=== PATIENT | female | born 1970 | race Caucasian/White ===

== ENCOUNTER 2025-05-11 12:12 | Outpatient (CLI) | payer OTHER, SELFPAY ==
--- OUTSIDE RECORDS SUMMARY | 2025-05-11 12:18 | XMS_ITS | Encounter Summary ---
Author Organization [facility] Address [address] [place] [address] Care Team Providers Care Quality Control Operator Name Role Phone Darrick Neely MD Unavailable [phone] Vineet Drummond MD Primary Care Provider [phone] Encounter Details Date Type Department Care Team (Late st Contact Info) Description 08/07/2022 Lab Requisition [facility] [address] [place] [address] Jorge Butler [place] [address] Social History Tobacco Use Types Packs/Day Years Used Date Smoking Tobacco: Never Assessed Comments Unknown Sex and Gender Information Value Date Recorded Sex Assigned at Not on file Legal Sex Female 6:07 AM SCOUTS Gender Identity Not on file Sexual Orientation Not on file documented as of this encounter Plan of Treatment Not on file documented as of this encounter Procedures Procedure Name Priority Date/Time Associated Diagnosis Comments DERMATOPATHOLOGY Routine 08/06/2022 12:0 0 AM SCOUTS documented in this encounter Results * DERMATOPATHOLOGY (08/06/2022 12:00 AM SCOUTS) Case Report Dermatopathology Report Case: [id number] Authorizing Provider: Jorge Butler MD Collected: 08/06/2022 12:00 AM Ordering Location: [facility] Received: 08/07/2022 01:08 PM Pathologist: Mony Sierra MD Specimen: Skin, sup edge of left patella 2 2:10 PM [facility] Final Diagnosis Specimen A. SKIN, sup edge of left patella: SEBORRHEIC KERATOSIS (L82.1) 2 2:10 PM [facility] at [address] Clinical History R/O SCC, Dys Nevus, ISK 2 2:10 PM [facility] Gross Description Specimen A: Received is one formalin filled container labeled with the patient's name and designated sup edge of left patella. The specimen consists of a shave biopsy measuring [id number]. Jar 0. 2 2:10 PM [facility] Microscopic Description Specimen A. SKIN, sup edge of left patella: Sections show an acanthotic lesion composed of relatively uniform keratinocytes. There is hyperkeratosis and pseudo horn cysts formation. 2 2:10 PM [facility] Disclaimer An external and internal positive and negative controls are appropriate for the histochemical, immunohistochemical and immunofluorescence stain(s) in this case (if any), except where stated explicitly. The performance characteristics of the stain(s) cited in this report were developed and its performance characteristic determined by the Dermatopathology Laboratory at [facility], directed by Dr. Stephanie Crowley. These tests need not be, and therefore are not, approved by the [place] Food and Drug Administration. The tests are used for clinical purposes. Billing Codes Specimen Charges Stain Charges 14946 1 2 2:10 PM [facility] Embedded Images 2 2:10 PM [facility] Pathology/Cytolog y TISSUE SPECIMEN FROM SKIN / Unknown 08/06/2022 08/07/2022 1:08 PM [facility] Jorge Butler MD LAB - PATHOLOGY/CYTOLOGY ORD ERABLES Final Result DERMATOPATHOLOGY LABORATORY [facility] - Department of Dermatology [address], [address] [phone] documented in this encounter Visit Diagnoses Not on filedocumented in this encounter Care Teams Quality Control Operator Relationship Specialty Start Date End Date Vineet Drummond MD [address] [place] [address] PCP - General 08/07/22 [place] [address] [facility] [address] [place] [id number] Orthopedic Surgery 07/12/16 documented as of this encounter
--- OUTSIDE RECORDS SUMMARY | 2025-05-11 12:18 | XMS_ITS | Clinical Summary ---
Author Organization [facility] [employer] Address [address] [place] [address] Care Team Providers Care Agriculture Teacher Name Role Phone Darrick Neely MD Unavailable [phone] Vineet Drummond MD Primary Care Provider Source Comments [facility] [employer],non-owned Affiliates and Associated Physician Practices is amultiple site organization consisting of ambulatory clinics and hospital sitesin [place], [place], [place] and [place]. This disclosure is being madepursuant to the Care Everywhere program and may not contain all information available regarding this patient. Last updated 18.[facility] [employer] Allergies No known active allergies Medications * Be aware that medications may not be up to date on this document. Alwaysverify current medications with the patient. lamoTRIgine (LAMICTAL) 150 MG tablet Take 1 Tab by mouth 2 times daily. 120 Tab 1 10/15/2011 Active FLUoxetine HCl (PROZAC PO) Active Active Problems Problem Noted Date Diagnosed Date Closed Colles' fracture of right radius 07/12/20 16 Social History Tobacco Use Types Packs/Day Years Used Date Smoking Tobacco: Never Assessed Comments Unknown Sex and Gender Information Value Date Recorded Sex Assigned at Not on file Legal Sex Female 6:07 AM IMPORTER EXPORTER Gender Identity Not on file Sexual Orientation Not on file Last Filed Vital Signs Vital Sign Reading Time Taken Comments Blood Pressure - - Pulse - - Temperature - - Respiratory Rate - - Oxygen Saturation - - Inhaled Oxygen Concentration - - Weight 65.3 kg (144 lb) 07/12/2016 8:58 AM CDT Height 167.6 cm (5' 6) 07/12/2016 8:58 AM CDT Body Mass Index 23.24 07/12/2016 8:58 AM CDT Plan of Treatment Health Maintenance Due Date Last Done Comments COLOGUARD (AGES 45-75) - COL ON CA SCREENING 1971 COLON MONITORING 1971 COLONOSCOPY - COLON CA SCREENING 1971 CT COLONOGRAPHY - COLON CA SCREENING 1971 Colorectal Cancer Screening 1971 FIT - COLON CA SCREENING 1971 FLEX SIG - COLON CA SCREENING 1971 LIPID TESTING 1971 MAMMOGRAM 1971 HIV SCREENING 1986 HEPATITIS C SCREENING 01/02/1989 DTAP/TDAP/TD VACCINES (1 - Tdap) 1990 HEPATITIS B VACCINE (1 of 3 - 19+ 3-dose series) 1990 PAP SMEAR 01/08/1992 PNEUMOCOCCAL VACCINE 50+ (1 of 1 - PCV) 2021 ZOSTER VACCINE (1 of 2) 2021 COVID-19 VACCINE (1 - 2023-2 5 season) 2024 DEPRESSION SCREENING 09/29/2024 INFLUENZA VACCINE (#1) 2025 HIB VACCINE Aged Out No longer eligi ble based on patient's age to complete this topic HPV VACCINE Aged Out No longer eligi ble based on patient's age to complete this topic MENINGOCOCCAL (Group B) VACC INE SHARED DECISION-MAKING Aged Out No longer eligibl e based on patient's age to complete this topic MENINGOCOCCAL GROUPS A/C/Y/W VACCINE Aged Out No longer eligible b ased on patient's age to complete this topic Insurance [employer] Care Teams Agriculture Teacher Relationship Specialty Start Date End Date Vineet Drummond MD [address] [address] PCP - General 08/07/22 [place] [address] [phone] Orthopedic Surgery 07/12/16
--- OUTSIDE RECORDS SUMMARY | 2025-05-11 12:18 | XMS_ITS | Continuity of Care Document ---
Author Organization [facility] Address [address] [place] [address] Phone Care Team Providers Care Professor Sculpture Name Role Phone Canelo Dubon MD Unavailable Unavailable Procedures Procedure Date Office/outpatient Visit, [facility] Advance Directives Directive Yes / No Effective Date File Name No Information Encounters Encounter Description Practice Location Reason(s) For Visit Diagnoses Date Provider Providers Copied on Encounter Office/outpat ient Visit, [facility], [address], [place], [place], [id number], [place] tel:[phone] [address] [facility] Professional No Information 2 Ling Lemos. [address], [place], [id number], [place]. tel:[phone] Referring Provider: Canelo Sampson [address] [place], [address] . tel:[phone] Family History Family Member Type Diagnosis Age At Onset No Information Payers Payer name Insurance type Covered constitution party ID Authoriza tion(s) No Information Social History [...]
--- OUTSIDE RECORDS SUMMARY | 2025-05-11 12:18 | XMS_ITS | Clinical Summary ---
Author Organization [facility] Address [address] [place] [address] Care Team Providers Care Planning Technician Name Role Phone Tim Bahena MD Primary Care Provider [phone] Mae Galloway MD Unavailable Allergies No known active allergies Medications levonorgestrel (MIRENA) IUD 0 0 4 Active valACYclovir (VALTREX) 500 mg tablet Take 1 tablet (500 mg total) by mouth daily 90 tablet 2 1 Active Additional Information Patient taking differently:500 mg oralDaily PRN, Reported on 10/25/2024 minocycline (MINOCIN,DYNACI N) 50 mg capsule Take 1 capsule (50 mg total) by mouth as needed 3 Active oxyBUTYnin XL (DITROPAN-XL) 5 mg 24 hr tabletIndicatio ns:Overactive bladder Take 1 tablet (5 mg total) by mouth daily 90 tablet 3 5 10/25/19 26 Active sertraline (ZOLOFT) 50 mg tabletIndicatio ns:Anxiety Take 2 every am, and 1 every pm 270 tablet 1 5 Active busPIRone (BUSPAR) 5 mg tabletIndicatio ns:Generalized Anxiety Disorder Take 1 tablet (5 mg total) by mouth nightly 90 tablet 1 5 Active lamoTRIgine (LaMICtal) 150 mg tablet TAKE TWO TABLETS BY MOUTH TWICE A DAY 360 tablet 5 Active tirzepatide, weight loss, (ZEPBOUND) 10 mg/0.5 mL pen injectorIndicat ions:Weight Loss Management for Obese Patient (BMI >= 30) Inject 0.5 mL (10 mg total) under the skin every 7 days 2 mL 1 5 Active cyclobenzaprine (FLEXERIL) 10 mg tabletIndicatio ns:Muscle Spasm Take 1/2 tablet (5 mg total) by mouth once daily at bedtime as needed. 15 tablet 5 Active Active Problems Problem Noted Date Diagnosed Date Screening for colon cancer 12/30/2023 Left ovarian cyst 06/12/2023 Anxiety 02/04/2020 Weight gain advised 02/04/2020 Routine physical examination 12/17/2017 Assessment & Plan (08/23/2024 1:46 PM MILL ROLL OPERATOR): IMMUNIZATIONS WERE REVIEWED EYE EXAM AND DENTAL UPTODATE JENNIFER CHRONIC AND NOT IN REMSSION ZOLOFT 150 MG PO QAM AND ADD BUSAPR 5 MG PO QHS LEVEL 2 OBESITY : DISCUSSED HBAIC TODAY / GLP 1 AGONIST IF HBAIC IS ELEVATED SEIZURE D/O CHRONIC AND STABLE NO COGNTIVE DECLINE NO SKIN LESIONS REFERRAL TO DERMATOLOGY Pain in wrist 06/10/2016 Overview (01/04/2017): Wrist pain Seizure 06/10/2016 Overview (01/04/2017): Seizures Encounters Date Type Department Care Team Description 04/13/2025 Telephone [facility] [address] [place] [address] Tim Bahena MD Back Pain from Last 3 Months Immunizations Immunization Administration Dates Next Due DTP 08/23/2011 Influenza, Quadrivalent, Spl it, Preservative Free, Intramuscular 07/11/2023 Influenza, Unspecified 08/12/2024 Tdap 09/30/2019,11/18/2013 Surgical History Surgery Date Site/Laterality Comments OTHER SURGICAL HISTORY Seizure disorder: Managed with Dr. Gomez ([facility]) AUGMENTATION MAMMOPLASTY augmentation mammoplasty OTHER SURGICAL HISTORY Seizure disorder: Lamictal OTHER SURGICAL HISTORY Irregular, heavy periods: Mirena IUD BREAST FIBROADENOMA SURGERY 09/29/1995 - 09/28/1996 Fibroadenoma of the breast: excision SKIN CANCER EXCISION 09/29/1998 - 09/28/1999 Basal cell skin cancer: excision COLONOSCOPY >10 yrs ago COLONOSCOPY 09/01/2024 Medical History Medical History Date Comments Seizure disorder (HCC) Seizure d isorder Hx Other Medical Seizure disorde r Hx Other Medical 1995 Fibroadenoma of the breast Hx Other Medical 1998 Basal cell skin cancer Hx Other Medical 2012 Irregular, heav y periods Hx Other Medical Fx Left leg wit h hardware 04-29-16.; Comments: [facility] 06/11/2016 - Hx Other Medical Fx. right wrist 06-05-16.; Comments: [facility] 06/11/2016 - Abnormal Pap smear of cervix 2017 LSI L, HPV+. Colposcopy - [facility]ICE 1 Abnormal Pap smear of cervix 2018 NIL M, HPV + (neg 16/18/45). Colposcopy - neg biopsies Family History Medical History Relation Name Comments Asthma Brother 1 Asthma; Seizures Brother 2 Seizure disorde r; Coronary artery disease Father Edith nary artery disease; Diabetes Father Diabetes mellit us; Heart attack Father Myocardial infa rction; Seizures Father Seizure disorde r; Skin cancer Father Cancer -skin; Hypertension Mother Hypertension; Other Mother's Sister Cancer, ? ty pe; Other Other No family histo ry of Stroke; Relation Name Status Comments Brother 1 Brother 2 Father Mother Mother's Sister Other Social History Tobacco Use Types Packs/Day Years Used Date Smoking Tobacco: Never Smokeless Tobacco: Never Tobacco Cessation:Counseling Given: Not Answered Alcohol Use Standard Drinks/Week Comments Yes 0 (1 standard drink = 0.6 oz pur e alcohol) AUDIT-C Answer Date Recorded Q1: How often do you have a drink containing alc ohol? 2-4 times a month 08/31/2024 Q2: How many drinks containi ng alcohol do you have on a typical day when you are drinking? 5 or 6 08/31/2024 Q3: How often do you have si x or more drinks on one occasion? Monthly 08/31/2024 PHQ-2 Answer Date Recorded PHQ-2 Total Score (If total score is 3 or more points, staff should administer the PHQ-9) 2 08/23/2024 Personal Safety Answer Date Recorded Have you ever been in or are you currently in a harmful physical or emotional relationship or is someone making you feel afraid or unsafe? 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 on file Not on file Not on file Obstetrics History Para Term AB IAB SAB Ectopic Multiple Livin g Live Births 0 0 0 0 0 0 0 0 0 0 0 Last Filed Vital Signs Vital Sign Reading Time Taken Comments Blood Pressure 138/72 10/25/2024 8:20 AM MILL ROLL OPERATOR Pulse 55 09/01/2024 10:12 AM MILL ROLL OPERATOR Temperature 36.3 C (97.4 F) 09/01/2024 10:12 AM MILL ROLL OPERATOR Respiratory Rate 16 09/01/2024 10:12 AM MILL ROLL OPERATOR Oxygen Saturation 95% 09/01/2024 10:12 AM MILL ROLL OPERATOR Inhaled Oxygen Concentration - - Weight 90.7 kg (200 lb) 10/25/2024 8:20 AM MILL ROLL OPERATOR Height 167.6 cm (5' 6) 10/25/2024 8:20 AM MILL ROLL OPERATOR Body Mass Index 32.28 10/25/2024 8:20 AM MILL ROLL OPERATOR Plan of Treatment Health Maintenance Due Date Last Done Comments Hepatitis C Screening 1970 Hepatitis B Screening 1989 Zoster Vaccine (1 of 2) 2021 Covid-19 Vaccine ( season) 2024 11/21/2020, 10/24/2020 Cervical Cancer Screening 06/12/20242022, 06/12/2023, 11/08/2020, Additional history exists Influenza Vaccine (#1) 2025 08/12/2024, 2022 Depression Screening 08/23/2025 08/23/2024 Regular Well Visit/Exam 18-64 10/25/2025 10/25/2024, 08/23/2024, 08/12/2023, Additional history exists Breast Cancer Screening-Mammogram 10/26/2025 10/26/2024, 06/17/2023, 08/15/2020, Additional history exists DTaP/Tdap/Td Vaccine (4 - Td or Tdap) 09/30/2029 09/30/2019, 11/18/2013, 08/23/2011 Colon Cancer Screening-Colonoscopy 09/01/2034 09/01/2024 Pneumococcal vaccine <65 Aged Out No longer eligible based on patient's age to complete this topic Medical Devices Implanted Type Area Crimping Machine Operator Device Identifier Shelf Expiration Date Model / Serial / Lot Breast Implants Bilateral: Breast Description:2012 Procedures Procedure Name Priority Date/Time Associated Diagnosis Comments SCREENING MAMMOGRAM BILATERAL W DADA W IMPLANTS Schedule Routine, Read Routine (OP Routine) 10/26/2024 12:04 PM MILL ROLL OPERATOR Encounter for screening mammogram for breast cancer COLONOSCOPY 09/01/2024 8:05 AM MILL ROLL OPERATOR HIGH RISK HPV DNA DETECTION WITH GENOTYPING Routine 06/12/2023 9:02 AM CDT Screening for malignant neoplasm of the cervix from Last 3 Months or Most Recently Relevant to Health Maintenance Results * Screening Mammogram Bilateral W Dada W Implants (10/26/2024 12:04 PM MILL ROLL OPERATOR) Anatomical Region Laterality Modality Breast Bilateral Mammography 10/27/2024 5:12 PM MILL ROLL OPERATOR Impressions 10/27/2024 5:12 PM MILL ROLL OPERATOR No evidence of malignancy in either breast. FINAL ASSESSMENT: BI-RADS Category 1: Negative. RECOMMENDATION: Recommend return for annual screening mammogram in 12 months. Electronically signed by: Theresa Lopez M.D. Narrative 10/27/2024 5:12 PM MILL ROLL OPERATOR EXAMINATION: BILATERAL SCREENING MAMMOGRAM with dada with implants COMPARISON: 06/17/2023, 08/15/2020, 04/27/2019, 06/22/2010 TECHNIQUE: Full-field 2D and digital breast tomosynthesis (DBT) images were obtained in the routine and implant displaced CC and MLO projections. CAD was utilized. BREAST PARENCHYMAL COMPOSITION: There are scattered areas of fibroglandular density. FINDINGS: Bilateral subpectoral silicone implants are stable. There is no suspicious mass, calcification, or distortion in either breast. There has been no significant interval change from the prior study. us Mae Galloway MD IMG MAMMO PROCEDURES Final Result * Colonoscopy (09/01/2024 8:05 AM MILL ROLL OPERATOR) Anatomical Region Laterality Modality Other Narrative Procedure Note Raimundo Russell MD - 09/01/2024 8:05 AM CST [facility] Patient Name: Roz Alegre Procedure Date: 09/01/2024 8:05 AM Date of : 1970 Admit Type: Outpatient Age: 54 Gender: Female Attending MD: Raimundo Russell M.D. Room: [facility] RO[facility] 2 Note Status: Finalized Patient Profile: This is a 54 year old female hx of seizuredisorder, anxiety, obesity here for colonoscopy for coloncancer screening. Remote normal colonoscopy per patient.No family hx of colon cancer. Procedure: Colonoscopy Indications: Screening for colorectal malignant neoplasm, Last colonoscopy 10 years ago Referring MD: Tim Bahena M.D. Providers: Raimundo Russell M.D. Impression: - One 4 mm polyp in the ascending colon, removedwith a cold snare. Resected and retrieved. - Diverticulosis in the sigmoid colon. - External and internal hemorrhoids. Recommendation: - Patient has a contact number available for emergencies. The signs and symptoms of potential delayed complications were discussed with thepatient. Return to normal activities tomorrow. Written discharge instructions were provided to thepatient. - Discharge patient to home (with escort). - Resume previous diet. - Continue present medications. - Await pathology results. - Repeat colonoscopy in 5-10 years for surveillance based on pathology results. - Return to referring physician as previously scheduled. Medicines: Monitored Anesthesia Care Complications: No immediate complications. Estimated Blood Loss: Estimated blood loss was minimal. Procedure: Pre-Anesthesia Assessment: - Prior to the procedure, a History and Physicalwas performed, and patient medications and allergieswere reviewed. The patient is competent. The risks and benefits of the procedure and the sedation optionsand risks were discussed with the patient. Allquestions were answered and informed consent was obtained. Patient identification and proposed procedure were verified by the physician, the clay carman and the nanoscience technician in the endoscopy suite. Mental Status Examination: normal. Prophylactic Antibiotics: The patient does not require prophylactic antibiotics. Prior Anticoagulants: The patient has taken no anticoagulant or antiplatelet agents. Afterreviewing the risks and benefits, the patient was deemed in satisfactory condition to undergo the procedure.The anesthesia plan was to use monitored anesthesiacare (MAC). Immediately prior to administration of medications, the patient was re-assessed foradequacy to receive sedatives. The heart rate, respiratory rate, oxygen saturations, blood pressure, adequacyof pulmonary ventilation, and response to care were monitored throughout the procedure. The physical status of the patient was re-assessed after the procedure. The benefits, risks and alternatives of theprocedure and sedation were discussed and informed consentwas obtained. All questions were answered. Please referto the signed informed consent document in the medical record. The bowel preparation used was Miralax and bisacodyl tablets via split dose instruction. The scope was passed under direct vision. The Pediatric Colonoscope [id number] was introduced through the anus and advanced to the the cecum, identified by appendiceal orifice and ileocecalvalve. The colonoscopy was performed without difficulty.The patient tolerated the procedure well. The qualityof the bowel preparation was good. Bowel prep was administered using a split dose. Findings: The perianal and digital rectal examinations were normal. A 4 mm polyp was found in the ascending colon. The polyp was flat.The polyp was removed with a cold snare. Resection and retrieval were complete. Multiple small and large-mouthed diverticula were found in thesigmoid colon. External and internal hemorrhoids were found during retroflexion. Raimundo Russell M.D. 09/01/2024 9:44:53 AM Number of Addenda: 0 Note Initiated On: 09/01/2024 8:05 AM Procedure Code(s): --- Professional --- 51570, Colonoscopy, flexible; with removal of tumor(s), polyp(s), or other lesion(s) by snare technique --- Technical --- 31330, Colonoscopy, flexible; with removal of tumor(s), polyp(s), or other lesion(s) by snare technique Diagnosis Code(s): --- Professional --- Z12.11, Encounter for screening for malignant neoplasm of colon D12.2, Benign neoplasm of ascending colon K64.8, Other hemorrhoids K57.30, Diverticulosis of large intestine without perforation orabscess without bleeding --- Technical --- Z12.11, Encounter for screening for malignant neoplasm of colon D12.2, Benign neoplasm of ascending colon K64.8, Other hemorrhoids K57.30, Diverticulosis of large intestine without perforation orabscess without bleeding CPT copyright 2020 [employer]. All rights reserved. The codes documented in this report are preliminary and upon outpatient coder reviewmay be revised to meet current compliance requirements. Recognized by the [employer] for promoting quality in endoscopy us Raimundo Russell MD ENDOSCOPY PROCEDURES Final Resul t * High Risk HPV DNA Detection with Genotyping (Molecular component) (06/12/2023 9:02 AM CDT) HPV HR 16 Not Detected Not Detected LICHA BALDWIN Comment:Testing performed by : [facility], [address] [facility] [place]., [address] HPV HR 18 Not Detected Not Detected LICHA BALDWIN Comment:Testing performed by : [facility], [address] [place]., [address] HPV HR Non 16/18 Not Detected Not Detected LICHA BALDWIN Comment: Interpretive Data Nucleic acid amplification for detection of high-risk Human Papilloma virus (HPV) is performed by the Mike Sergey 6800 HPV test. This assay specifically detects HPV-16 and HPV-18 genotypes. The following HPV genotypes are detected as high-risk HPV: HPV-31, 33, 35, ,39, 45, 51, 52, 56, 58, 59, 66, and 68. This assay has been approved by the [place] Food and Drug Administration for detection of HPV in cervical specimens collected by a physician using an endocervical brush/spatula or cervical broom and placed in the ThinPrep Pap Test PreservCyt collection containers. The performance characteristics of this test have been verified by the [facility] Infectious Disease laboratory. Correlate with separately reported cytology results, as applicable. Interpretive data last revised 23 Testing performed by: [facility], [address] [place]., [address] Endocervical 06/12/2023 9:02 AM CDT 06/13/2023 3:27 PM CDT Narrative LICHA BALDWIN - 06/14/2023 12:38 AM CDT Clinical history and diagnosis->Network Pap with HR HPV negative pap in 2018 HPV positive Z12.4 Number of vials->1 Testing type->Screening Last menstrual period (date if known)->IUD Contraceptive use->IUD Mae Galloway MD LAB BODY FLUIDS AND S TOOLS ORDERABLES Final Result LICHA BALDWIN [address] [place] [address] from Last 3 Months or Most Recently Relevant to Health Maintenance Insurance [facility] [employer] Address: [address] [place] [address] [employer] Address: [facility] [id number] [place] [id number] [employer] Address: [facility] [id number] [place] [address] Advance Directives For more information, please contact: [phone] * Full Code (Latest Code Status on File) Date Activated Date Inactivated Comments 09/01/2024 8:13 AM 09/01/2024 2:29 PM * Full Code Date Activated Date Inactivated Comments 09/01/2024 8:13 AM 09/01/2024 8:13 AM Care Teams Planning Technician Relationship Specialty Start Date End Date Tim Bahena MD [address] [place] [id number] PCP - General 12/27/16 Mae Galloway MD [address] [place] [id number] Cellar Worker Obstetrics and Gynecology 02/04/20
[2025-05-11 13:05] LABS: Albumin Level 4.5 g/dL (3.5-5.1)
[2025-05-11 13:07] LABS: Iron 99 ug/dL (37-170)
[2025-05-11 13:11] LABS: Hemoglobin A1C 5.4 % (<5.7)
[2025-05-11 13:20] LABS: Prealbumin 34.1 mg/dL (17.6-36.0)
[2025-05-15 18:07] LABS: Vit. B1, Whole Blood 139.4 nmol/L (66.5-200.0)
== END 2025-05-11 12:13 | disposition home or self-care (01) ==
LOC: ANHLAB 12:16
PROVIDERS: Visit Provider Surgery Plastic and Reconstructive Surgery
DX: R63.4 Abnormal weight loss (principal)
CPT/HCPCS: 36415; 82040; 83036; 83540; 84134; 84425

== ENCOUNTER 2025-06-10 01:45 | Day surgery (SDC) | payer OTHER, SELFPAY ==
--- OUTSIDE RECORDS SUMMARY | 2012-01-21 08:45 | XMS_ITS | Continuity of Care Document ---
Author Organization [facility] Address [address] [place] [address] Phone Care Team Providers Care Supervisor Forming Department Name Role Phone Canelo Dubon MD Unavailable Unavailable Procedures Procedure Date Office/outpatient Visit, [facility] Advance Directives Directive Yes / No Effective Date File Name No Information Encounters Encounter Description Practice Location Reason(s) For Visit Diagnoses Date Provider Providers Copied on Encounter Office/outpat ient Visit, [facility], [address], [place], [place], [id number], [place] tel:[phone] [address] [facility] Professional No Information 2 Ling Lemos. [address], [id number], [place]. tel:[phone] Referring Provider: Canelo Sampson [address] [place], [address] . tel:[phone] Family History Family Member Type Diagnosis Age At Onset No Information Payers Payer name Insurance type Covered libertarian ID Authoriza tion(s) No Information Social History Type Description Quantity Date Captured Comments Sex Female Smoking Status No Information Chief Complaint And Reason For Visit No Information Reason For Referral Reason For Referral No Information History Of Present Illness Encounter Date Complaint History Of Prese nt Illness No Information Functional Status Date Functional Assessmen t No Information Instructions Date Instruction Additional Infor mation No Information Assessments Type Assessment Date No Information Patient Care Teams Name Effective Dates (start - stop) Status Members No Information
[2025-06-03 10:40] VITALS: BMI 27.0
--- NOTE | 2025-06-03 10:48 | PC.NURSE ---
Report to the Outpatient Waiting Room, entrance under the green pavilion located off [facility], at time _1200_ on date _[id number]_. Planned Procedure Time: _2pm_.? Time changes happen often and if your time is changed the preop area will call you the afternoon before. - You and your visitor will be asked to self-screen and do not enter if you have any COVID symptoms. Please call surgeon if you need to reschedule. - A mask is optional within the hospital at this time. Patients may have clear liquids (water, carbonated beverages, clear teas, apple juice) until 3 hours prior to surgery with a maximum of 20 ounces. - No food from midnight until time of surgery and no smoking, or chewing tobacco (or any form of nicotine). No chewing gum, candy or mints. Take only the following medications with a SIP of water on the morning of surgery: __Sertraline and Lamictal____ DO NOT STOP ANY OF YOUR OTHER PRESCRIPTION MEDICATIONS PRIOR TO SURGERY EXCEPT THE FOLLOWING Hold all vitamins and supplements for 3 days per anesthesiologist. Medications to discontinue per physician Date to take last jtzk___[id number]___ Please no make-up, nail british, hairspray, perfume, deodorant, or body powder the day of surgery.? No jewelry (including any body piercings) or valuables the day of surgery, leave them at home.? Please take a shower or bath the night before, or the morning of, surgery with an antibacterial soap.? Wear comfortable, loose fitting clothing.? - Jewelry must be removed prior to entering the operating room.? Rings and piercings that are not removed may be cut off. - The hospital will not accept responsibility for valuables.? - Please leave all valuables, including medications, at home the day of surgery. If you are going home after surgery, a licensed service car driver must drive you home.? - NO public transportation without another adult if you receive anesthesia. - We recommend that an adult stay with you for 24 hours following discharge. - We also recommend that you do not drive, make important decision, drink alcoholic beverages, or take any drugs that were not prescribed by your health care provider for at least 24 hours after your discharge time. Follow any additional instructions given to you from your surgeon. Telephone instructions given to __Theresa__and asked if any additional questions and then verbalized understanding. Patient advised to call surgeon office or pre surgery nurse liaison [phone] if any additional questions.
[2025-06-10] VITALS (8 sets, daily range): BP systolic 124–150; BP diastolic 79–95; PULSE 64–84; RESP 14–20; TEMP 36.8–37.1; O2SAT 92–99; BMI 27.2
--- OUTSIDE RECORDS SUMMARY | 2025-06-10 01:47 | XMS_ITS | Clinical Summary ---
Author Organization [facility] [employer] Address [address] [facility] [place] [address] Care Team Providers Care Web Specialist Name Role Phone Darrick Neely MD Unavailable [phone] Vineet Drummond MD Primary Care Provider [phone] Source Comments [facility] [employer],non-owned Affiliates and Associated Physician Practices is amultiple site organization consisting of ambulatory clinics and hospital sitesin [place], [place], [place] and [place]. This disclosure is being madepursuant to the Care Everywhere program and may not contain all information available regarding this patient. Last updated 18.[facility] [employer] Allergies No known active allergies Medications * [...] on file Legal Sex Female 6:07 AM AUTOMATIC ENGRAVER Gender Identity Not on file Sexual Orientation [...] 2021 ZOSTER VACCINE (1 of 2) 2021 DEPRESSION SCREENING 09/29/2024 COVID-19 VACCINE (1 - 2023-2 5 season) 2025 INFLUENZA VACCINE (#1) 2025 HIB VACCINE Aged [...] this topic Insurance [employer] Care Teams Web Specialist Relationship Specialty Start Date End Date Vineet Drummond MD [address] [address] PCP - General 08/07/22 [place] [id number] [id number] Orthopedic Surgery 07/12/16
--- OUTSIDE RECORDS SUMMARY | 2025-06-10 01:47 | XMS_ITS | Encounter Summary ---
Author Organization [facility] Address [address] [place] [address] Care Team Providers Care Nailing Machine Operator Name Role Phone Darrick Neely MD Unavailable [phone] Vineet Drummond MD Primary Care Provider [phone] Encounter Details Date Type Department Care Team (Late st Contact Info) Description 08/07/2022 Lab Requisition [facility] [address] [facility] [place] [address] Jorge [place] [address] Social History Tobacco Use Types Packs/Day Years Used Date Smoking Tobacco: Never Assessed Comments Unknown Sex and Gender Information Value Date Recorded Sex Assigned at Not on file Legal Sex Female 6:07 AM APPLICATIONS ENGINEER MANUFACTURING Gender Identity Not on file Sexual Orientation Not on file documented as of this encounter Plan of Treatment Not on file documented as of this encounter Procedures Procedure Name Priority Date/Time Associated Diagnosis Comments DERMATOPATHOLOGY Routine 08/06/2022 12:0 0 AM APPLICATIONS ENGINEER MANUFACTURING documented in this encounter Results * DERMATOPATHOLOGY (08/06/2022 12:00 AM APPLICATIONS ENGINEER MANUFACTURING) Case Report Dermatopathology Report Case: [id number] Authorizing Provider: Jorge Butler MD Collected: 08/06/2022 12:00 AM Ordering Location: [facility] Received: 08/07/2022 01:08 PM Pathologist: Mony Sierra MD Specimen: Skin, sup edge of left patella 2 2:[address] [facility] Final Diagnosis Specimen A. SKIN, sup edge of left patella: SEBORRHEIC KERATOSIS (L82.1) 2 2:[address] [facility] at 1410 APPLICATIONS ENGINEER MANUFACTURING Clinical History R/O SCC, Dys Nevus, ISK 2 2:[address] [facility] Gross Description Specimen A: Received is one formalin filled container labeled with the patient's name and designated sup edge of left patella. The specimen consists of a shave biopsy measuring [id number]. Jar 0. 2 2:[address] [facility] Microscopic Description Specimen A. SKIN, sup edge of left patella: Sections show an acanthotic lesion composed of relatively uniform keratinocytes. There is hyperkeratosis and pseudo horn cysts formation. 2 2:[address] [facility] Disclaimer An external and internal positive and negative controls are appropriate for the histochemical, immunohistochemical and immunofluorescence stain(s) in this case (if any), except where stated explicitly. The performance characteristics of the stain(s) cited in this report were developed and its performance characteristic determined by the Dermatopathology Laboratory at [facility], directed by Dr. Stephanie Crowley. These tests need not be, and therefore are not, approved by the [place] Food and Drug Administration. The tests are used for clinical purposes. Billing Codes Specimen Charges Stain Charges 53449 1 2 2:[address] [facility] Embedded Images 2 2:[address] [facility] Pathology/Cytolog y TISSUE SPECIMEN FROM SKIN / Unknown 08/06/2022 08/07/2022 1:[address] [facility] Jorge Butler MD LAB - PATHOLOGY/CYTOLOGY ORD ERABLES Final Result DERMATOPATHOLOGY LABORATORY [facility] - Department of Dermatology [address], [address] [phone] documented in this encounter Visit Diagnoses Not on filedocumented in this encounter Care Teams Nailing Machine Operator Relationship Specialty Start Date End Date Vineet Drummond MD [address] [place] [address] PCP - General 08/07/22 [place] [address] [facility] [address] [address] [place] [id number] Orthopedic Surgery 07/12/16 documented as of this encounter
--- OUTSIDE RECORDS SUMMARY | 2025-06-10 01:47 | XMS_ITS | Clinical Summary ---
Author Organization [facility] Address [address] [place] [address] Care Team Providers Care Industrial Engineering Professor Name Role Phone Tim Bahena MD Primary Care Provider [phone] Mae Galloway MD Unavailable Allergies No known active allergies Medications levonorgestrel (MIRENA) IUD 0 0 01/21/20 14 Active valACYclovir (VALTREX) 500 mg tablet Take 1 tablet (500 mg total) by mouth daily 90 tablet 2 03/08/20 21 Active Additional Information Patient taking differently:500 mg oralDaily PRN, Reported on 10/25/2024 minocycline (MINOCIN,DYNAC IN) 50 mg capsule Take 1 capsule (50 mg total) by mouth as needed 06/10/20 23 Active oxyBUTYnin XL (DITROPAN-XL) 5 mg 24 hr tabletIndicati ons:Overactive bladder Take 1 tablet (5 mg total) by mouth daily 90 tablet 3 10/25/19 25 026 Active busPIRone (BUSPAR) 5 mg tabletIndicati ons:Generalize d Anxiety Disorder Take 1 tablet (5 mg total) by mouth nightly 90 tablet 1 10/27/19 25 Active tirzepatide, weight loss, (ZEPBOUND) 10 mg/0.5 mL pen injectorIndica tions:Weight Loss Management for Obese Patient (BMI >= 30) Inject 0.5 mL (10 mg total) under the skin every 7 days 2 mL 1 03/29/20 25 Active cyclobenzaprin e (FLEXERIL) 10 mg tabletIndicati ons:Muscle Spasm Take 1/2 tablet (5 mg total) by mouth once daily at bedtime as needed. 15 tablet 04/13/20 25 Active sertraline (ZOLOFT) 50 mg tabletIndicati ons:Anxiety TAKE TWO TABLETS BY MOUTH EVERY MORNING AND TAKE ONE TABLET BY MOUTH EVERY EVENING 270 tablet 05/17/20 25 Active lamoTRIgine (LaMICtal) 150 mg tablet TAKE TWO TABLETS BY MOUTH TWICE A DAY 360 tablet 05/17/20 25 Active sertraline (ZOLOFT) 50 mg tabletIndicati ons:Anxiety Take 2 every am, and 1 every pm 270 tablet 1 10/27/19 25 025 Discontinued lamoTRIgine (LaMICtal) 150 mg tablet TAKE TWO TABLETS BY MOUTH TWICE A DAY 360 tablet 11/30/19 25 025 Discontinued Active Problems Problem Noted Date Diagnosed Date Screening for colon cancer 12/30/2023 Left ovarian cyst 06/12/2023 Anxiety 02/04/2020 Weight gain advised 02/04/2020 Routine physical examination 12/17/2017 Assessment & Plan (08/23/2024 1:46 PM STRATEGIC PLANNING MANAGER): IMMUNIZATIONS WERE REVIEWED EYE EXAM AND DENTAL [...] Type Department Care Team Description 04/13/2025 Telephone [facility] [address] [place] [address] Tim Bahena MD Back Pain from Last 3 Months Immunizations Immunization Administration Dates Next Due DTP 08/23/2011 Influenza, Quadrivalent, Spl it, Preservative Free, Intramuscular 07/11/2023 Influenza, Unspecified 08/12/2024 Tdap 09/30/2019,11/18/2013 Surgical History Surgery Date Site/Laterality Comments OTHER SURGICAL HISTORY Seizure disorder: Managed with Dr. Gomez ([facility]) AUGMENTATION MAMMOPLASTY augmentation mammoplasty OTHER SURGICAL [...] Basal cell skin cancer Hx Other Medical 2011 Irregular, heav y periods Hx Other Medical Fx Left leg wit h hardware 04-29-16.; Comments: [facility] 06/11/2016 - Hx Other Medical Fx. right wrist 06-05-16.; Comments: [facility] 06/11/2016 - Abnormal Pap smear of cervix 2017 LSI L, HPV+. Colposcopy - MAURICE 1 Abnormal Pap smear of cervix 2018 NIL M, HPV + (neg 16/18/45). Colposcopy - neg biopsies Family History Medical History Relation Name Comments Asthma Brother 1 Asthma; Seizures Brother 2 Seizure disorde r; Coronary artery disease Father Ediht nary artery disease; Diabetes Father Diabetes mellit [...] on file Legal Sex Female 1:46 AM STRATEGIC PLANNING MANAGER Gender Identity Female 02/19/2022 12:44 PM CDT [...] Comments Blood Pressure 138/72 10/25/2024 8:20 AM STRATEGIC PLANNING MANAGER Pulse 55 09/01/2024 10:12 AM STRATEGIC PLANNING MANAGER Temperature 36.3 C (97.4 F) 09/01/2024 10:12 AM STRATEGIC PLANNING MANAGER Respiratory Rate 16 09/01/2024 10:12 AM STRATEGIC PLANNING MANAGER Oxygen Saturation 95% 09/01/2024 10:12 AM STRATEGIC PLANNING MANAGER Inhaled Oxygen Concentration - - Weight 90.7 kg (200 lb) 10/25/2024 8:20 AM STRATEGIC PLANNING MANAGER Height 167.6 cm (5' 6) 10/25/2024 8:20 AM STRATEGIC PLANNING MANAGER Body Mass Index 32.28 10/25/2024 8:20 AM STRATEGIC PLANNING MANAGER Plan of Treatment Health Maintenance Due Date Last Done Comments Hepatitis C Screening 1970 Hepatitis B Screening 1989 Zoster Vaccine (1 of 2) 2021 Cervical Cancer Screening 06/12/20242022, 06/12/2023, 11/08/2020, Additional history exists Covid-19 Vaccine ( season) 2025 11/21/2020, 10/24/2020 Influenza Vaccine (#1) 2025 08/12/2024, 2022 Depression [...] this topic Medical Devices Implanted Type Area Police Dispatcher Device Identifier Shelf Expiration Date Model / Serial / Lot Breast Implants Bilateral: Breast Description:2012 Procedures Procedure Name Priority Date/Time Associated Diagnosis Comments SCREENING MAMMOGRAM BILATERAL W DADA W IMPLANTS Schedule Routine, Read Routine (OP Routine) 10/26/2024 12:04 PM STRATEGIC PLANNING MANAGER Encounter for screening mammogram for breast cancer COLONOSCOPY 09/01/2024 8:05 AM STRATEGIC PLANNING MANAGER HIGH RISK HPV DNA DETECTION WITH GENOTYPING Routine 06/12/2023 9:02 AM CDT Screening for malignant neoplasm of the cervix from Last 3 Months or Most Recently Relevant to Health Maintenance Results * Screening Mammogram Bilateral W Dada W Implants (10/26/2024 12:04 PM STRATEGIC PLANNING MANAGER) Anatomical Region Laterality Modality Breast Bilateral Mammography 10/27/2024 5:12 PM STRATEGIC PLANNING MANAGER Impressions 10/27/2024 5:12 PM STRATEGIC PLANNING MANAGER No evidence of malignancy in either breast. FINAL ASSESSMENT: BI-RADS Category 1: Negative. RECOMMENDATION: Recommend return for annual screening mammogram in 12 months. Electronically signed by: Nohemy Dougherty 10/27/2024 5:12 PM STRATEGIC PLANNING MANAGER EXAMINATION: BILATERAL SCREENING MAMMOGRAM with dada with [...] the prior study. us Mae Galloway MD IM MAMMO PROCEDURES Final Result * Colonoscopy (09/01/2024 8:05 AM STRATEGIC PLANNING MANAGER) Anatomical Region Laterality Modality Other Narrative Procedure Note Raimundo Russell MD - 09/01/2024 8:05 AM CST [facility] Patient Name: Roz Alegre Procedure Date: 09/01/2024 8:05 AM Date of : 1970 Admit Type: Outpatient Age: 54 Gender: Female Attending MD: Raimundo Russell M.D. Room: [facility] ENDOSCOPY ROOM 2 Note Status: Finalized [...] procedure were verified by the physician, the studio camera operator and the r&d lab technician in the endoscopy suite. Mental Status [...] passed under direct vision. The Pediatric Colonoscope [id number] was introduced through the anus and advanced [...] 8:05 AM Procedure Code(s): --- Professional --- 31174, Colonoscopy, flexible; with removal of tumor(s), polyp(s), or other lesion(s) by snare technique --- Technical --- 75190, Colonoscopy, flexible; with removal of tumor(s), polyp(s), [...] perforation orabscess without bleeding CPT copyright 2020 [employer]. All rights reserved. The codes documented in this report are preliminary and upon substation electrician reviewmay be revised to meet current compliance requirements. Recognized by the [employer] for promoting quality in endoscopy us Raimundo Russell MD ENDOSCOPY PROCEDURES Final Resul t * High Risk HPV DNA Detection with Genotyping (Molecular component) (06/12/2023 9:02 AM CDT) HPV HR 16 Not Detected Not Detected LICHA BALDWIN Comment:Testing performed by : [facility], [address] [place]., [address] HPV HR 18 Not Detected Not Detected LICHA Comment:Testing performed by : [facility], [address] [place]., [address] HPV HR Non 16/18 Not Detected Not Detected LICHA Comment: Interpretive Data Nucleic acid amplification for [...] this test have been verified by the [facility] Molecular Infectious Disease laboratory. Correlate with separately reported cytology results, as applicable. Interpretive data last revised 23 Testing performed by: [facility], [address] [place]., [address] Endocervical 06/12/2023 9:02 AM CDT 06/13/2023 3:27 PM CDT Narrative [facility] 06/14/2023 12:38 AM CDT Clinical history and diagnosis->Network Pap with HR HPV negative pap in 2018 HPV positive Z12.4 Number of vials->1 Testing type->Screening Last menstrual period (date if known)->IUD Contraceptive use->IUD us Mae Galloway MD LAB BODY FLUIDS AND S TOOLS ORDERABLES Final Result [facility] [address] [address] [place] [address] from Last 3 Months or Most Recently Relevant to Health Maintenance Insurance [employer] PPO AETNA [employer] [facility] [employer] Address: [address] [place] [address] [employer] [facility] [employer] Address: [address] [place] [address] [employer] [facility] [employer] Address: [address] [place] [address] Advance Directives For more information, please contact: [phone] * Full Code (Latest Code Status on File) Date Activated Date Inactivated Comments 09/01/2024 8:13 AM 09/01/2024 2:29 PM * Full Code Date Activated Date Inactivated Comments 09/01/2024 8:13 AM 09/01/2024 8:13 AM Care Teams Industrial Engineering Professor Relationship Specialty Start Date End Date Tim Bahena MD [address] [place] [address] PCP - General 12/27/16 Mae Galloway MD [address] [place] [address] Social Media Sr Strategy Manager Obstetrics and Gynecology 02/04/20
[2025-06-10] MEDS: LACTATED RINGERS 1,000 ML 30 ML IV CONT ×2 (12:15→16:05)
--- NOTE | 2025-06-10 13:26 | WPDHPUPDATE1 ---
History and Physical Update Update Date/Time: 06/10/25 13:26 History and Physical has been reviewed, including an updated exam of the patient. There are NO changes in the patient's condition. Risks, benefits, and alternatives have been discussed and questions answered. Patient agrees to proceed with procedure.
[2025-06-10] MEDS: TRANEXAMIC ACID 1,000MG/ISO100 1,000 MG/100 ML BAG 200 MG IVPB (13:31)
--- NOTE | 2025-06-10 13:35 | W.PM.PROC2 ---
Procedure Note - Detailed Date of Procedure 06/10/25 Pre-op Diagnosis Rt Breast Implant Rupture Post-op Diagnosis Same Procedure Performed Bilateral breast implant removal Surgeon Darrick Ramos MD Anesthesia General Findings Previous implants bilateral 440cc textured. Right ruptured, left intact Total capsulectomy completed. Description of Procedure She is here for the above procedure. Preoperatively risks, benefits, alternatives were discussed in extensive detail. Want her to be very realistic about risks involved as well as expectations. We discussed options or drains with the procedure including all her options. Made sure answered everyone of her questions to her satisfaction again today. She voiced clear understanding. Consent was obtained. She was taken to the operating room placed supine on the operating room table. Anesthesia provided by anesthesiology. She was prepped and draped in the standard sterile fashion. Surgical time-out was. 1% lidocaine and 0.25% Marcaine with epinephrine was used to provide a field block. Fifteen blade used to excise along previous scar. Dissection was continued down to the capsules identified it is an elevated above the capsule for majority of the capsule. At this point the implant and the capsule were removed. Capsule sent to pathology. I copiously irrigated with 3 L of saline solution on TUR tubing. Verified strict hemostasis. I closed with 2-0 Vicryl followed by 3-0 Stratafix in running subcuticular 4-0 Monocryl and tissue glue. Dressings and a surgical bra were placed. She tolerated the procedure well. Estimated Blood Loss 40 Drains No Packing No Pathology Yes (Bilateral breast capsules) Complications No immediate complications Condition Stable Disposition PACU
--- NOTE | 2025-06-10 13:45 | WPDANESEPPF ---
Anes - Initial Pre Proc Eval Procedure: Operation Date: 06/10/25 14:00 Proposed Procedures p Bilateral Breast Implant Removal with Capsulectomy - Darrick Ramos MD Date/Time: 06/10/25 13:45 Surgeon: Darrick Ramos MD Pre Op Diagnosis: Rt Breast Implant Rupture Patient Data Age: 55 Gender: F Height: 1.68 m Weight: 76.5 kg Last Vital Signs Temp 36.8 C 06/10/25 12:23 Pulse 70 06/10/25 12:23 BP 124/91 H 06/10/25 12:23 Pulse Ox 99 06/10/25 12:23 O2 Del Method Room Air 06/10/25 12:23 Allergies Allergy/AdvReac Type Severity Reaction Status Date / Time No Known Allergies Allergy Verified 06/10/25 12:20 Home Medications ?Medication ?Instructions ?Recorded ?Confirmed ?Type lamotrigine 150 mg tablet 300 mg PO BID 06/03/25 06/10/25 History sertraline 50 mg tablet 150 mg PO DAILY 06/03/25 06/10/25 History vitamin A 2,500 unit-vit C 100 1 cap PO DAILY 06/03/25 06/10/25 History mg-biotin 2,500 gdg-hmmi-lmnvnn capsule (Gams-Mhkz-Msex (vit A,J-poqabx-Vl-Cu)) Patient hx anesthesia problems: none Family hx anesthesia problems: none Results Review: All pre-operative results and documents have been reviewed as part of the pre-operative evaluation. [facility] Past Medical History Medical History (Updated 06/10/25 @ 13:45 by Carlos Qiu MD) Overweight Seizure disorder Surgical History Surgical History (Updated 06/10/25 @ 13:45 by Carlos Qiu MD) H/O breast augmentation Social History Social History Smoking status: Never smoker Alcohol intake: current Living arrangements: with family Spiritual care concerns: No Anes - Eval Final PreProcedure Day of Procedure 06/10/25 13:45 Patient weight: overweight Heart: regular rate and rhythm Lungs: clear to auscultation Airway: Mallampati scale class II Neurological: alert and oriented Last oral intake: >/= 8 hours ASA classification: II Emergent: no Anesthetic plan: proceed Anesthesia type and monitoring: general LMA and standard monitoring Results Review: All pre-operative results and documents have been reviewed as part of the pre-operative evaluation. Informed Consent: The patient's anesthetic plan and its attendant risks and benefits were discussed with the patient/family/POA. Questions were solicited and answers provided to the satisfaction of the patient/family/POA.
[2025-06-10] MEDS: LIDO 1%/EPINEPHRINE 1:100,000 20 ML VIAL 30 ML INFILTRATE (14:12)
[2025-06-10] MEDS: ceFAZolin 2 GM in SODIUM CHLORIDE 0.9% IV 50 ML 100 ML IVPB (14:12)
--- NOTE | 2025-06-10 15:06 | S_PTH ---
PATIENT: Roz Alegre LOC: [facility] U#:[id number] AGE/SX: 55/F ROOM: RE06/10/[address]: Darrick Ramos MD : 1970 BED: DIS: 06/10/2025 SPEC #: [id number] RECD: 06/13/25 07:42 STATUS: EDGAR REQ #: [id number] ABDIAS: 06/10/25 15:[address]: Darrick Ramos DEPT: [facility] Surgical RECD BY: Randee Hanson ENTERED: 06/13/25 07:43 SP TYPE: Surgical OTHR DR: Tim BahenaMD Tissues: A - Breast Capsule B - Breast Capsule Procedures: Hematoxylin and Eosin Stain Gross and Microscopic Level 3
[2025-06-10] MEDS: fentaNYL CITRATE INJ (*CRX) 100 MCG/2 ML VIAL 25 MCG IV PUSH ×4 (15:52→16:18)
[2025-06-10] MEDS: oxyCODONE HCL (*CRX) 5 MG TAB IR PO (17:08)
== END 2025-06-10 17:32 | disposition home or self-care (01) ==
PROVIDERS: PCP Internal Medicine Infectious Disease; Visit Provider Surgery Plastic and Reconstructive Surgery
PROC: (CPT 19371; principal; 2025-06-10 14:00)
DX: T85.41XA Breakdown (mechanical) of breast prosthesis and implant, initial encounter (principal); Y83.1 Surgical operation with implant of artificial internal device as the cause of abnormal reaction of the patient, or of later complication, without mention of misadventure at the time of the procedure
CPT/HCPCS: 19371; 88304; J0690; A9270; J2003; J2004; J2250; J2405; J2704; J3010; J7120

== ENCOUNTER 2025-09-16 07:23 | Day surgery (SDC) | payer OTHER, SELFPAY ==
[2025-09-07 08:50] VITALS: BMI 25.0
[2025-09-16 10:58] VITALS: BP 115/86; PULSE 61; RESP 16; TEMP 36.9; O2SAT 100
[2025-09-16] MEDS: TRANEXAMIC ACID 1,000 MG/10 ML AMPUL 1000 MG IV PUSH (11:13)
[2025-09-16] MEDS: LACTATED RINGERS 1,000 ML 30 ML IV CONT ×2 (11:13→14:55)
--- OUTSIDE RECORDS SUMMARY | 2025-09-16 11:16 | XMS_ITS | Clinical Summary ---
Author Organization [email or web address] Address [address] [facility] [place] [address] Care Team Providers Care Splitting Machine Operator Name Role Phone Darrick Neely MD Unavailable [phone] Vineet Drummond MD Primary Care Provider [phone] Source Comments [email or web address],non-owned Affiliates and Associated Physician Practices is amultiple site organization consisting of ambulatory clinics and hospital sitesin [place], [place], [place] and [place]. This disclosure is being madepursuant to the Care Everywhere program and may not contain all information available regarding this patient. Last updated 18.[email or web address] Allergies No known active allergies Medications * [...] on file Legal Sex Female 6:07 AM CHRISTIAN MINISTRIES PROFESSOR Gender Identity Not on file Sexual Orientation [...] DEPRESSION SCREENING 09/29/2024 COVID-19 VACCINE (1 - 2024-2 6 season) 2025 INFLUENZA VACCINE (#1) 2025 HIB [...] age to complete this topic Insurance [employer] SELF PAY NO INSURANCE Member Subscriber Plan / Payer (Ef fective for All Dates) Name:Shanna Alegresa Member ID:Not on file Relation to Subscriber:Not on file Name:MIRACLEROZ Subscriber ID:Not on file (Home) Address: [address] [place] [address] Payer ID:Not on file Group ID:Not on file Type:Self Pay Address: [place], [place] [employer] Care Teams Splitting Machine Operator Relationship Specialty Start Date End Date Vineet Drummond MD [address] [place], [place] [address] [place] [address] PCP - General 08/07/22 [place] [address] [facility] [address] [id number] Orthopedic Surgery 07/12/16
--- OUTSIDE RECORDS SUMMARY | 2025-09-16 11:16 | XMS_ITS | Encounter Summary ---
Author Organization [facility] Address [address] [place] [address] Care Team Providers Care Ethylbenzene Oxidizer Name Role Phone Darrick Neely MD Unavailable Vineet Drummond MD Primary Care Provider [phone] Encounter Details Date Type Department Care Team (Late st Contact Info) Description 08/07/2022 Lab Requisition [facility] D[facility] Lab [address] [place] [address] [place] [address] Social History Tobacco Use Types Packs/Day Years Used Date Smoking Tobacco: Never Assessed Comments Unknown Sex and Gender Information Value Date Recorded Sex Assigned at Not on file Legal Sex Female 6:07 AM ELECTRICAL DEVELOPMENT ENGINEER Gender Identity Not on file Sexual Orientation Not on file documented as of this encounter Plan of Treatment Not on file documented as of this encounter Procedures Procedure Name Priority Date/Time Associated Diagnosis Comments DERMATOPATHOLOGY Routine 08/06/2022 12:0 0 AM ELECTRICAL DEVELOPMENT ENGINEER documented in this encounter Results * DERMATOPATHOLOGY (08/06/2022 12:00 AM ELECTRICAL DEVELOPMENT ENGINEER) Case Report Dermatopathology Report Case: [id number] Authorizing Provider: Jorge Butler MD Collected: 08/06/2022 12:00 AM Ordering Location: [facility] Lab Received: 08/07/2022 01:08 PM Pathologist: Mony Sierra MD Specimen: Skin, sup edge of left patella 2 2:10 PM [facility] Final Diagnosis Specimen A. SKIN, sup edge of left patella: SEBORRHEIC KERATOSIS (L82.1) 2 2:10 PM [facility] DERMAT[facility] at [address] ELECTRICAL DEVELOPMENT ENGINEER Clinical History R/O SCC, Dys Nevus, ISK 2 2:10 PM [facility] Gross Description Specimen A: Received is one formalin filled container labeled with the patient's name and designated sup edge of left patella. The specimen consists of a shave biopsy measuring [id number]. Jar 0. 2 2:10 PM [facility] Microscopic Description Specimen A. SKIN, sup edge of left patella: Sections show an acanthotic lesion composed of relatively uniform keratinocytes. There is hyperkeratosis and pseudo horn cysts formation. 2 2:10 PM [facility] Disclaimer An external and internal positive and negative controls are appropriate for the histochemical, immunohistochemical and immunofluorescence stain(s) in this case (if any), except where stated explicitly. The performance characteristics of the stain(s) cited in this report were developed and its performance characteristic determined by the Dermatopathology Laboratory at [facility], directed by Dr. Stephanie Crowley. These tests need not be, and therefore are not, approved by the [place] Food and Drug Administration. The tests are used for clinical purposes. Billing Codes Specimen Charges Stain Charges 36875 1 2 2:10 PM [facility] Embedded Images 2 2:10 PM [facility] Pathology/Cytolog y TISSUE SPECIMEN FROM SKIN / Unknown 08/06/2022 08/07/2022 1:08 PM [facility] Jorge Butler MD LAB - PATHOLOGY/CYTOLOGY ORD ERABLES Final Result DERMATOPATHOLOGY LABORATORY [facility] - Department of Dermatology [address], [address] [phone] documented in this encounter Visit Diagnoses Not on filedocumented in this encounter Care Teams Ethylbenzene Oxidizer Relationship Specialty Start Date End Date Vineet Drummond MD [address] [place] [address] PCP - General 08/07/22 [place] [address] [facility] [place] [phone] Orthopedic Surgery 07/12/16 documented as of this encounter
--- OUTSIDE RECORDS SUMMARY | 2025-09-16 11:16 | XMS_ITS | Clinical Summary ---
Author Organization [facility] Address [address] [place] [address] Care Team Providers Care Gear Tester Name Role Phone Tim Bahena MD Primary Care Provider [phone] Mae Galloway MD Unavailable Allergies No known [...] 90 tablet 3 5 10/25/19 26 Active busPIRone (BUSPAR) 5 mg tabletIndicati ons:Generalize d Anxiety Disorder Take 1 tablet (5 mg total) by mouth nightly 90 tablet 1 5 Active cyclobenzaprin e (FLEXERIL) 10 mg tabletIndicati ons:Muscle Spasm Take 1/2 tablet (5 mg total) by mouth once daily at bedtime as needed. 15 tablet 5 Active lamoTRIgine (LaMICtal) 150 mg tablet TAKE TWO TABLETS BY MOUTH TWICE A DAY 360 tablet 5 Active sertraline (ZOLOFT) 50 mg tabletIndicati ons:Anxiety TAKE TWO TABLETS BY MOUTH EVERY MORNING AND TAKE ONE TABLET BY MOUTH EVERY EVENING 270 tablet 5 Active tirzepatide, weight loss, (Zepbound) 15 mg/0.5 mL pen injectorIndica tions:Weight Loss Management for Obese Patient (BMI >= 30) Inject 0.5 mL (15 mg total) under the skin every 7 days 2 mL 5 Active sertraline (ZOLOFT) 50 mg tabletIndicati ons:Anxiety TAKE TWO TABLETS BY MOUTH EVERY MORNING AND TAKE ONE TABLET BY MOUTH EVERY EVENING 270 tablet 5 08/30/20 25 Discontin ued(Reord er) tirzepatide, weight loss, (Zepbound) 12.5 mg/0.5 mL pen injectorIndica tions:Weight loss Inject 0.5 mL (12.5 mg total) under the skin every 7 days 2 mL 5 08/23/20 25 Discontin ued(Reord er) tirzepatide, weight loss, (Zepbound) 12.5 mg/0.5 mL pen injectorIndica tions:Weight loss Inject 0.5 mL (12.5 mg total) under the skin every 7 days 2 mL 5 08/31/20 25 Discontin ued(Other ) Active Problems Problem Noted Date Diagnosed Date Screening for colon cancer 12/30/2023 Left ovarian cyst 06/12/2023 Anxiety 02/04/2020 Weight gain advised 02/04/2020 Routine physical examination 12/17/2017 Assessment & Plan (08/23/2024 1:46 PM BALLOON MAKER): IMMUNIZATIONS WERE REVIEWED EYE EXAM AND DENTAL [...] Encounters Date Type Department Care Team Description 08/23/2025 Telephone [facility] [address] [place] [phone] Tim Bahena MD Med Refill from Last 3 Months Immunizations Immunization Administration Dates Next Due DTP 08/23/2011 Influenza, Quadrivalent, Spl it, Preservative Free, Intramuscular 07/11/2023 Influenza, Unspecified 08/12/2024 Tdap 09/30/2019,11/18/2013 Surgical History Surgery Date Site/Laterality Comments OTHER SURGICAL HISTORY Seizure disorder: Managed with [facility]. Gomez ([facility]) AUGMENTATION MAMMOPLASTY augmentation mammoplasty OTHER SURGICAL HISTORY [...] Medical Fx Left leg wit h hardware 816.; Comments: [facility] 06/11/2016 - Hx Other Medical Fx. right wrist 16.; Comments: [facility] 06/11/2016 - Abnormal Pap smear of cervix 2016 LSI L, HPV+. Colposcopy - MAURICE 1 [...] on file Legal Sex Female 1:46 AM BALLOON MAKER Gender Identity Female 02/19/2022 12:44 PM CDT [...] Comments Blood Pressure 138/72 10/25/2024 8:20 AM BALLOON MAKER Pulse 55 09/01/2024 10:12 AM BALLOON MAKER Temperature 36.3 C (97.4 F) 09/01/2024 10:12 AM BALLOON MAKER Respiratory Rate 16 09/01/2024 10:12 AM BALLOON MAKER Oxygen Saturation 95% 09/01/2024 10:12 AM BALLOON MAKER Inhaled Oxygen Concentration - - Weight 90.7 kg (200 lb) 10/25/2024 8:20 AM BALLOON MAKER Height 167.6 cm (5' 6) 10/25/2024 8:20 AM BALLOON MAKER Body Mass Index 32.28 10/25/2024 8:20 AM BALLOON MAKER Plan of Treatment Health Maintenance Due Date Last Done Comments Hepatitis C Screening 1970 Hepatitis B Screening 1989 Zoster Vaccine (1 of 2) 2021 Cervical Cancer Screening 06/12/20242022, 06/12/2023, 11/08/2020, Additional history exists Covid-19 Vaccine ( - season) 2025 11/21/2020, 10/24/2020 Influenza Vaccine (#1) [...] this topic Medical Devices Implanted Type Area Dredge Pumper Device Identifier Shelf Expiration Date Model / Serial / Lot Breast Implants Bilateral: Breast Description:2012 Procedures Procedure Name Priority Date/Time Associated Diagnosis Comments SCREENING MAMMOGRAM BILATERAL W DADA W IMPLANTS Schedule Routine, Read Routine (OP Routine) 10/26/2024 12:04 PM BALLOON MAKER Encounter for screening mammogram for breast cancer COLONOSCOPY 09/01/2024 8:05 AM BALLOON MAKER HIGH RISK HPV DNA DETECTION WITH GENOTYPING Routine 06/12/2023 9:02 AM CDT Screening for malignant neoplasm of the cervix from Last 3 Months or Most Recently Relevant to Health Maintenance Results * Screening Mammogram Bilateral W Dada W Implants (10/26/2024 12:04 PM BALLOON MAKER) Anatomical Region Laterality Modality Breast Bilateral Mammography 10/27/2024 5:12 PM BALLOON MAKER Impressions 10/27/2024 5:12 PM BALLOON MAKER No evidence of malignancy in either breast. FINAL ASSESSMENT: BI-RADS Category 1: Negative. RECOMMENDATION: Recommend return for annual screening mammogram in 12 months. Electronically signed by: Theresa Lopez M.D. Narrative 10/27/2024 5:12 PM BALLOON MAKER EXAMINATION: BILATERAL SCREENING MAMMOGRAM with dada with [...] Final Result * Colonoscopy (09/01/2024 8:05 AM BALLOON MAKER) Anatomical Region Laterality Modality Other Narrative Procedure Note Raimundo Russell MD - 09/01/2024 8:05 AM CST [facility] Patient Name: Roz Alegre Procedure Date: 09/01/2024 8:05 AM Date of : 1970 Admit Type: Outpatient Age: 54 Gender: Female Attending MD: Raimundo Russell M.D. Room: [facility] ENDOSCOPY ROOM 2 Note Status: Finalized [...] procedure were verified by the physician, the corporate trainer and the wafer fab technician in the endoscopy suite. Mental Status [...] passed under direct vision. The Pediatric Colonoscope [id number] was introduced through the anus and advanced [...] 8:05 AM Procedure Code(s): --- Professional --- 00443, Colonoscopy, flexible; with removal of tumor(s), polyp(s), or other lesion(s) by snare technique --- Technical --- 69374, Colonoscopy, flexible; with removal of tumor(s), polyp(s), [...] perforation orabscess without bleeding CPT copyright 2020 [employer]. All rights reserved. The codes documented in this report are preliminary and upon basting machine operator reviewmay be revised to meet current compliance requirements. Recognized by the [employer] for promoting quality in endoscopy Raimundo Russell MD ENDOSCOPY PROCEDURES Final Resul t * High Risk HPV DNA Detection with Genotyping (Molecular component) (06/12/2023 9:02 AM CDT) HPV HR 16 Not Detected Not Detected [facility] Comment:Testing performed by : [facility], [address] [place]., [address] HPV HR 18 Not Detected Not Detected [facility] Comment:Testing performed by : [facility], [address] [place]., [address] HPV HR Non 16/18 Not Detected Not Detected [facility] Comment: Interpretive Data Nucleic acid amplification for [...] this test have been verified by the [facility] Molecular Infectious Disease laboratory. Correlate with separately reported cytology results, as applicable. Interpretive data last revised 23 Testing performed by: [facility], [address] [place]., [address] Endocervical 06/12/2023 9:02 AM CDT 06/13/2023 3:27 PM CDT Narrative [facility] - 06/14/2023 12:38 AM CDT Clinical history and diagnosis->Network Pap with HR HPV negative pap in 2018 HPV positive Z12.4 Number of vials->1 Testing type->Screening Last menstrual period (date if known)->IUD Contraceptive use->IUD Mae Galloway MD LAB BODY FLUIDS AND S TOOLS ORDERABLES Final Result Performing Organization Address City/State/ZIP Co in Phone Number [facility] [address] [facility] [place] [address] from Last 3 Months or Most Recently Relevant to Health Maintenance [place] [employer] [employer] Address: [address] [place] [address] [employer] [facility] [employer] Address: [address] [place] [address] [employer] [facility] [employer] Address: [address] [place] [address] Advance Directives For more information, please contact: [phone] * Full Code (Latest Code Status on File) Date Activated Date Inactivated Comments 09/01/2024 8:13 AM 09/01/2024 2:29 PM * Full Code Date Activated Date Inactivated Comments 09/01/2024 8:13 AM 09/01/2024 8:13 AM Care Teams Gear Tester Relationship Specialty Start Date End Date Tim Bahena MD [address] [place] [address] PCP - General 12/27/16 Mae Galloway MD [address] [place] [address] Softball Coach Obstetrics and Gynecology 02/04/20
--- NOTE | 2025-09-16 13:29 | WPDHPUPDATE1 ---
History and Physical Update Update Date/Time: 09/16/25 13:29 History and Physical has been reviewed, including an updated exam of the patient. There are NO changes in the patient's condition. Risks, benefits, and alternatives have been discussed and questions answered. Patient agrees to proceed with procedure.
--- NOTE | 2025-09-16 13:47 | WPDANESEPPF ---
Anes - Initial Pre Proc Eval Procedure: Operation Date: 09/16/25 12:30 Proposed Procedures p Left Breast Seroma Drainage - Darrick Ramos MD Date/Time: 09/16/25 13:47 Surgeon: Darrick Ramos MD Pre Op Diagnosis: Seroma Left Breast Patient Data Age: 55 Gender: F Height: 1.68 m Weight: 73.35 kg Last Vital Signs Temp 98.5 F 09/16/25 10:58 Pulse 61 09/16/25 10:58 Resp 16 09/16/25 10:58 BP 115/86 09/16/25 10:58 Pulse Ox 100 09/16/25 10:58 O2 Del Method Room Air 09/16/25 10:58 Allergies Allergy/AdvReac Type Severity Reaction Status Date / Time No Known Allergies Allergy Verified 09/16/25 10:57 Home Medications ?Medication ?Instructions ?Recorded ?Confirmed ?Type lamotrigine 150 mg tablet 300 mg PO DAILY 06/03/25 09/16/25 History sertraline 50 mg tablet 150 mg PO DAILY 06/03/25 09/16/25 History vitamin A 2,500 unit-vit C 100 1 cap PO DAILY 06/03/25 09/16/25 History mg-biotin 2,500 ezm-ofov-uuehdl capsule (Yxge-Xmxs-Xofl (vit A,J-jwnwxx-Vw-Cu)) Patient hx anesthesia problems: none Family hx anesthesia problems: none Results Review: All pre-operative results and documents have been reviewed as part of the pre-operative evaluation. [facility] Past Medical History Medical History (Updated 06/10/25 @ 13:45 by Carlos Qiu MD) Overweight Seizure disorder Surgical History Surgical History (Updated 06/10/25 @ 13:45 by Carlos Qiu MD) H/O breast augmentation Social History Social History Smoking status: Never smoker Tobacco type: cigarettes Second hand tobacco smoke exposure: Yes Alcohol intake: current Substance use type: former substance user Living arrangements: with family Spiritual care concerns: No Anes - Eval Final PreProcedure Day of Procedure 09/16/25 13:47 Heart: regular rate and rhythm Lungs: clear to auscultation Airway: Mallampati scale class II Neurological: alert and oriented Last oral intake: >/= 8 hours ASA classification: II Anesthetic plan: proceed Anesthesia type and monitoring: general Results Review: All pre-operative results and documents have been reviewed as part of the pre-operative evaluation. Informed Consent: The patient's anesthetic plan and its attendant risks and benefits were discussed with the patient/family/POA. Questions were solicited and answers provided to the satisfaction of the patient/family/POA.
[2025-09-16] MEDS: LIDO 1%/EPINEPHRINE 1:100,000 20 ML VIAL (14:06)
--- NOTE | 2025-09-16 14:47 | W.PM.PROC2 ---
Procedure Note - Detailed Date of Procedure 09/17/25 Pre-op Diagnosis Seroma Left Breast Post-op Diagnosis Same Procedure Performed Drainage left breast seroma and capsulectomy Surgeon Darrick Ramos MD Anesthesia General Findings Thickened scar versus capsule. Tissue removed and sent to pathology. Description of Procedure She is here for the above procedure. Preoperatively risks, benefits, alternatives were discussed in extensive detail. Want her to be very realistic about risks involved as well as expectations. We discussed options or drains with the procedure including all her options. Made sure answered everyone of her questions to her satisfaction again today. She voiced clear understanding. Consent was obtained. She was taken to the operating room placed supine on the operating room table. Anesthesia provided by anesthesiology. She was prepped and draped in the standard sterile fashion. Surgical time-out was. 1% lidocaine and 0.25% Marcaine with epinephrine was used to provide a field block. Fifteen blade used to excise along previous scar. Dissection was continued down until the fluid space was identified and entered. Some (minimal fluid). There was thickened scar / capsule and this was excised and sent to pathology. I copiously irrigated with saline solution . Verified strict hemostasis. Everett placed in pocket. 15 Jason drain placed and brought through the incision, sutured into place with 3-0 Nylon. I closed with 2-0 Vicryl followed by 3-0 Monocryl and running subcuticular 4-0 Monocryl and tissue glue. Dressings and a surgical bra were placed. She tolerated the procedure well. Estimated Blood Loss 50 Drains Yes Packing No Pathology Yes (Capsule versus scar breast) Complications No immediate complications Condition Stable Disposition PACU
[2025-09-16 14:54] VITALS: BP 122/91; PULSE 61; RESP 16; O2SAT 98
[2025-09-16 15:04] VITALS: BP 138/76; PULSE 60; RESP 16; O2SAT 100
[2025-09-16 15:14] VITALS: BP 145/75; PULSE 53; RESP 16; O2SAT 97
== END 2025-09-16 15:29 | disposition home or self-care (01) ==
PROVIDERS: PCP Internal Medicine Infectious Disease; Visit Provider Surgery Plastic and Reconstructive Surgery
PROC: (CPT 19370; principal; 2025-09-16 12:30)
DX: L76.34 Postprocedural seroma of skin and subcutaneous tissue following other procedure (principal)
CPT/HCPCS: 19370; J3290

== ENCOUNTER 2025-09-16 07:28 | Outpatient (NON) | payer OTHER, SELFPAY ==
--- NOTE | 2025-09-16 | S_PTH ---
PATIENT: Roz Alegre LOC: [facility] U#:[id number] AGE/SX: 55/F ROOM: RE09/16/[address]: Darrick Ramos MD : 1970 BED: DIS: 09/16/2025 SPEC #: [id number] RECD: 09/19/25 08:13 STATUS: EDGAR REQ #: [id number] ABDIAS: 09/16/25 00:[address]: Darrick Ramos DEPT: [facility] Surgical RECD BY: Randee Hanson ENTERED: 09/19/25 08:14 SP TYPE: Surgical OTHR DR: Tim Bahena, Tissues: A - Breast Capsule Procedures: Hematoxylin and Eosin Stain Gross and Microscopic Level 3
--- OUTSIDE RECORDS SUMMARY | 2025-09-19 07:34 | XMS_ITS | Clinical Summary ---
Author Organization [facility] Address [address] [place] [address] Care Team Providers Care Sinter Press Operator Name Role Phone Tim Bahena MD Primary Care Provider [phone] Mea Galloway MD Unavailable Allergies No known active [...] 12/17/2017 Assessment & Plan (08/23/2024 1:46 PM WADER BOOT TOP ASSEMBLER): IMMUNIZATIONS WERE REVIEWED EYE EXAM AND DENTAL [...] Type Department Care Team Description 08/23/2025 Telephone [facility] [address] [place] [phone] Tim Bahena MD Med Refill from Last 3 Months Immunizations Immunization Administration Dates Next Due DTP 08/23/2011 Influenza, Quadrivalent, Spl it, Preservative Free, Intramuscular 07/11/2023 Influenza, Unspecified 08/12/2024 Tdap 09/30/2019,11/18/2013 Surgical History Surgery Date Site/Laterality Comments OTHER SURGICAL HISTORY Seizure disorder: Managed with Dr. Gomez ([facility]) AUGMENTATION MAMMOPLASTY augmentation mammoplasty OTHER [...] Left leg wit h hardware 816.; Comments: [facility] 06/11/2016 - Hx Other Medical Fx. right wrist 16.; Comments: [facility] 06/11/2016 - Abnormal Pap smear of cervix [...] on file Legal Sex Female 1:46 AM WADER BOOT TOP ASSEMBLER Gender Identity Female 02/19/2022 12:44 PM CDT [...] Comments Blood Pressure 138/72 10/25/2024 8:20 AM WADER BOOT TOP ASSEMBLER Pulse 55 09/01/2024 10:12 AM WADER BOOT TOP ASSEMBLER Temperature 36.3 C (97.4 F) 09/01/2024 10:12 AM WADER BOOT TOP ASSEMBLER Respiratory Rate 16 09/01/2024 10:12 AM WADER BOOT TOP ASSEMBLER Oxygen Saturation 95% 09/01/2024 10:12 AM WADER BOOT TOP ASSEMBLER Inhaled Oxygen Concentration - - Weight 90.7 kg (200 lb) 10/25/2024 8:20 AM WADER BOOT TOP ASSEMBLER Height 167.6 cm (5' 6) 10/25/2024 8:20 AM WADER BOOT TOP ASSEMBLER Body Mass Index 32.28 10/25/2024 8:20 AM WADER BOOT TOP ASSEMBLER Plan of Treatment Health Maintenance Due Date [...] this topic Medical Devices Implanted Type Area Quality Assurance Coordinator Device Identifier Shelf Expiration Date Model / Serial / Lot Breast Implants Bilateral: Breast Description:2012 Procedures Procedure Name Priority Date/Time Associated Diagnosis Comments SCREENING MAMMOGRAM BILATERAL W DADA W IMPLANTS Schedule Routine, Read Routine (OP Routine) 10/26/2024 12:04 PM WADER BOOT TOP ASSEMBLER Encounter for screening mammogram for breast cancer COLONOSCOPY 09/01/2024 8:05 AM WADER BOOT TOP ASSEMBLER HIGH RISK HPV DNA DETECTION WITH GENOTYPING Routine 06/12/2023 9:02 AM CDT Screening for malignant neoplasm of the cervix from Last 3 Months or Most Recently Relevant to Health Maintenance Results * Screening Mammogram Bilateral W Dada W Implants (10/26/2024 12:04 PM WADER BOOT TOP ASSEMBLER) Anatomical Region Laterality Modality Breast Bilateral Mammography 10/27/2024 5:12 PM WADER BOOT TOP ASSEMBLER Impressions 10/27/2024 5:12 PM WADER BOOT TOP ASSEMBLER No evidence of malignancy in either breast. FINAL ASSESSMENT: BI-RADS Category 1: Negative. RECOMMENDATION: Recommend return for annual screening mammogram in 12 months. Electronically signed by: Theresa Lopez M.D. Narrative 10/27/2024 5:12 PM WADER BOOT TOP ASSEMBLER EXAMINATION: BILATERAL SCREENING MAMMOGRAM with dada with [...] Final Result * Colonoscopy (09/01/2024 8:05 AM WADER BOOT TOP ASSEMBLER) Anatomical Region Laterality Modality Other Narrative Procedure Note Raimundo Russell MD - 09/01/2024 8:05 AM CST [facility] [place] Patient Name: Roz Alegre Procedure Date: 09/01/2024 8:05 AM Date of : 1970 Admit Type: Outpatient Age: 54 Gender: Female Attending MD: Raimundo Russell M.D. Room: [facility] ENDOSCOPY ROOM 2 Note Status: Finalized Patient [...] procedure were verified by the physician, the manager fiber and the central lab technician in the endoscopy suite. Mental [...] passed under direct vision. The Pediatric Colonoscope [id number] was introduced through the anus and advanced [...] 8:05 AM Procedure Code(s): --- Professional --- 93938, Colonoscopy, flexible; with removal of tumor(s), polyp(s), or other lesion(s) by snare technique --- Technical --- 63735, Colonoscopy, flexible; with removal of tumor(s), polyp(s), [...] perforation orabscess without bleeding CPT copyright 2020 [employer]. All rights reserved. The codes documented in this report are preliminary and upon insurance verification specialist reviewmay be revised to meet current compliance requirements. Recognized by the [place] [employer] for promoting quality in endoscopy Raimundo Russell MD ENDOSCOPY PROCEDURES Final Resul t * High Risk HPV DNA Detection with Genotyping (Molecular component) (06/12/2023 9:02 AM CDT) HPV HR 16 Not Detected Not Detected [facility] Comment:Testing performed by : [facility], [address] [place]., [address] HPV HR 18 Not Detected Not Detected [facility] Comment:Testing performed by : [facility], [address] [place]., [address] HPV HR Non 16/18 Not Detected Not Detected [facility] Comment: Interpretive Data Nucleic acid amplification for [...] this test have been verified by the [facility] Molecular Infectious Disease laboratory. Correlate with separately reported cytology results, as applicable. Interpretive data last revised 23 Testing performed by: [facility], [address] [place]., [address] Endocervical 06/12/2023 9:02 AM CDT 06/13/2023 3:27 PM CDT Narrative [facility] - 06/14/2023 12:38 AM CDT Clinical history and diagnosis->Network Pap with HR HPV negative pap in 2018 HPV positive Z12.4 Number of vials->1 Testing type->Screening Last menstrual period (date if known)->IUD Contraceptive use->IUD Mae Galloway MD LAB BODY FLUIDS AND S TOOLS ORDERABLES Final Result Performing Organization Address City/State/ZIP [place] Phone Number [facility] [address] [address] [facility] [place] [address] from Last 3 Months or Most Recently Relevant to Health Maintenance [facility] [employer] [employer] [employer] Address: [address] [place] [address] [employer] [facility] [employer] Address: [address] [place] [address] [employer] [facility] [employer] Address: [address] [place] [address] Advance Directives For more information, please contact: [phone] * Full Code (Latest Code Status on File) Date Activated Date Inactivated Comments 09/01/2024 8:13 AM 09/01/2024 2:29 PM * Full Code Date Activated Date Inactivated Comments 09/01/2024 8:13 AM 09/01/2024 8:13 AM Care Teams Sinter Press Operator Relationship Specialty Start Date End Date Tim Bahena MD [address] [place] [address] PCP - General 12/27/16 Mae Galloway MD [address] [place] [id number] Power Hammer Operator Obstetrics and Gynecology 02/04/20
--- OUTSIDE RECORDS SUMMARY | 2025-09-19 07:34 | XMS_ITS | Clinical Summary ---
Author Organization [email or web address] Address [address] [facility] [place] [address] Care Team Providers Care Stringer Machine Tender Name Role Phone Darrick Neely MD Unavailable [phone] Vineet Drummond MD Primary Care Provider [phone] Source Comments [email or web address],non-owned Affiliates and Associated Physician Practices is amultiple site organization consisting of ambulatory clinics and hospital sitesin [place], [place], [place] and [place]. This disclosure is being madepursuant to the Care Everywhere program and may not contain all information available regarding this patient. Last updated 18.[facility] [email or web address] Allergies No known active allergies Medications * [...] on file Legal Sex Female 6:07 AM TITLE INSURANCE EXAMINER Gender Identity Not on file Sexual Orientation [...] Name:MIRACLEROZ Subscriber ID:Not on file (Home) Address: [address] [place] [address] Payer ID:Not on file Group ID:Not on file Type:Self Pay Address: [place], [place] [employer] Care Teams Stringer Machine Tender Relationship Specialty Start Date End Date Vineet Drummond MD [address] [place], [place] [address] [place] [address] PCP - General 08/07/22 [place] [id number] [facility] [address] [id number] Orthopedic Surgery 07/12/16
--- OUTSIDE RECORDS SUMMARY | 2025-09-19 07:34 | XMS_ITS | Encounter Summary ---
Author Organization [facility] Address [address] [facility] [place] [address] Care Team Providers Care Strategic Partnership Specialist Name Role Phone Darrick Neely MD Unavailable [phone] Vineet Drummond MD Primary Care Provider [phone] Encounter Details Date Type Department Care Team (Late st Contact Info) Description 08/07/2022 Lab Requisition [facility] DermPath Lab [address] [facility] [place] [address] Jorge Butler [place] [address] Social History Tobacco Use Types Packs/Day Years Used Date Smoking Tobacco: Never Assessed Comments Unknown Sex and Gender Information Value Date Recorded Sex Assigned at Not on file Legal Sex Female 6:07 AM NURSE'S COMPANION Gender Identity Not on file Sexual Orientation Not on file documented as of this encounter Plan of Treatment Not on file documented as of this encounter Procedures Procedure Name Priority Date/Time Associated Diagnosis Comments DERMATOPATHOLOGY Routine 08/06/2022 12:0 0 AM NURSE'S COMPANION documented in this encounter Results * DERMATOPATHOLOGY (08/06/2022 12:00 AM NURSE'S COMPANION) Case Report Dermatopathology Report Case: [id number] Authorizing Provider: Jorge Butler MD Collected: 08/06/2022 12:00 AM Ordering Location: [facility] Derm[facility] Lab Received: 08/07/2022 01:08 PM Pathologist: Mony Sierra MD Specimen: Skin, sup edge of left patella 2 2:10 PM [facility]ERMAT[facility] Final Diagnosis Specimen A. SKIN, sup edge of left patella: SEBORRHEIC KERATOSIS (L82.1) 2 2:10 PM [facility] DERMATOPATHOLOGY LABORATORY at 1410 NURSE'S COMPANION Clinical History R/O SCC, Dys Nevus, ISK 2 2:10 PM [facility] Gross Description Specimen A: Received is one formalin filled container labeled with the patient's name and designated sup edge of left patella. The specimen consists of a shave biopsy measuring [id number]. Jar 0. 2 2:10 PM [facility] DERMATOPATH[facility]Y [facility] Microscopic Description Specimen A. SKIN, sup edge of left patella: Sections show an acanthotic lesion composed of relatively uniform keratinocytes. There is hyperkeratosis and pseudo horn cysts formation. 2 2:10 PM [facility] DERMATOPATH[facility]Y [facility]OR[facility] Disclaimer An external and internal positive and negative controls are appropriate for the histochemical, immunohistochemical and immunofluorescence stain(s) in this case (if any), except where stated explicitly. The performance characteristics of the stain(s) cited in this report were developed and its performance characteristic determined by the Dermatopathology Laboratory at [facility], directed by Dr. Stephanie Crowley. These tests need not be, and therefore are not, approved by the [place] Food and Drug Administration. The tests are used for clinical purposes. Billing Codes Specimen Charges Stain Charges 84252 1 2 2:10 PM [facility] DERMATOPATH[facility]Y [facility] Embedded Images 2 2:10 PM [facility]OP[facility] Pathology/Cytolog y TISSUE SPECIMEN FROM SKIN / Unknown 08/06/2022 08/07/2022 1:08 PM [facility] Jorge Butler MD LAB - PATHOLOGY/CYTOLOGY ORD ERABLES Final Result DERMATOPATHOLOGY LABORATORY [facility] - Department of Dermatology [address], [address] [phone] documented in this encounter Visit Diagnoses Not on filedocumented in this encounter Care Teams Strategic Partnership Specialist Relationship Specialty Start Date End Date Vineet Drummond MD [address] [place] [address] PCP - General 08/07/22 [place] [address] [facility] [address] [place] [phone] Orthopedic Surgery 07/12/16 documented as of this encounter
== END 2025-09-16 07:29 | disposition home or self-care (01) ==
LOC: ANHLAB 09-19 07:30
PROVIDERS: PCP Internal Medicine Infectious Disease; Visit Provider Surgery Plastic and Reconstructive Surgery
DX: D24.2 Benign neoplasm of left breast (principal); Z98.890 Other specified postprocedural states
CPT/HCPCS: 88304